=== PATIENT | male | born 2000 | race Caucasian/White ===

== ENCOUNTER 2021-04-21 08:26 | Outpatient (CLI) | payer BC | END 2021-04-21 08:27 | disposition home or self-care (01) | LOC: BICMRI 08:26 | PROVIDERS: ATTEND Nurse Practitioner Acute Care | DX: M54.16 Radiculopathy, lumbar region (principal); M51.27 Other intervertebral disc displacement, lumbosacral region; M48.07 Spinal stenosis, lumbosacral region; M48.8X8 Other specified spondylopathies, sacral and sacrococcygeal region | CPT/HCPCS: 72148 ==